=== PATIENT | female | born 1965 | race Caucasian/White ===

== ENCOUNTER 2023-12-25 14:34 | Outpatient (CLI) | payer MEDICAID | END 2023-12-25 23:59 | disposition home or self-care (01) | LOC: RAD 14:34 | PROVIDERS: ATTEND Nurse Practitioner Family | DX: K76.0 Fatty (change of) liver, not elsewhere classified (principal); R74.8 Abnormal levels of other serum enzymes | CPT/HCPCS: 76700; 93976 ==